=== PATIENT | male | born 1970 | race Caucasian/White ===

== ENCOUNTER 2016-06-16 09:46 | Emergency (ER) | payer MEDICARE, MEDICAID ==
[~2016-06-16] VITALS: Ht 172.7 cm; Wt 62.0 kg
[~2016-06-16 09:46] MED LIST: BENZ100C PO; LEVO500T8 PO; LEVO750T26 PO; LEVO750T6 PO; POLY17PO5 PO
[2016-06-16 09:59] VITALS: BP 128/75
[2016-06-16] MEDS ORDERED: FLUORESCEIN OPHTHALMIC 1 MG STRIP ONE (10:32)
[2016-06-16] MEDS ORDERED: PROPARACAINE OPHTH 0.5%, 15ML ONE (10:32)
[2016-06-16] MEDS ORDERED: PROPARACAINE OPHTH 0.5%, 15ML EACHEYE ONE (11:00)
[2016-06-16] MEDS ORDERED: FLUORESCEIN OPHTHALMIC 1 MG STRIP EACHEYE ONE (11:00)
== END 2016-06-16 11:54 | disposition home or self-care (01) ==
LOC: ED 11:48
DX: H10.022 Other mucopurulent conjunctivitis, left eye (principal); S05.02XA Injury of conjunctiva and corneal abrasion without foreign body, left eye, initial encounter; F41.1 Generalized anxiety disorder; G89.29 Other chronic pain; Z88.0 Allergy status to penicillin; Z87.891 Personal history of nicotine dependence; Z91.013 Allergy to seafood; X58.XXXA Exposure to other specified factors, initial encounter; Y93.89 Activity, other specified; Y99.8 Other external cause status; Y92.89 Other specified places as the place of occurrence of the external cause
CPT/HCPCS: 99283

== ENCOUNTER 2016-06-18 13:59 | Inpatient (IN) | payer MEDICARE, MEDICAID ==
[~2016-06-18] VITALS: Ht 172.7 cm; Wt 59.0 kg
[2016-06-18] MEDS ORDERED: PROPARACAINE OPHTH 0.5%, 15ML ONE (14:41)
[2016-06-18] MEDS ORDERED: FLUORESCEIN OPHTHALMIC 1 MG STRIP ONE (14:41)
[2016-06-18] MEDS ORDERED: SODIUM CHLORIDE FLUSH 10ML SYR IVF ONE (17:30)
[2016-06-18 17:33] LABS: HEMOGLOBIN 14.4 g/dL (13.7-18.0)
[2016-06-18 17:41] LABS: BLOOD UREA NITROGEN 10 mg/dL (7-18)
[2016-06-18] MEDS ORDERED: HYDROcodone/APAP 5/325 TABLET ONE (17:45)
[2016-06-18] MEDS ORDERED: HYDROcodone/APAP 5/325 TABLET PO ONE (18:00)
[2016-06-18] MEDS ORDERED: SODIUM CHLORIDE FLUSH 10ML SYR IVF PRN (18:30)
[2016-06-18] MEDS ORDERED: DIPH25CA61 PO (18:58)
[2016-06-18] MEDS ORDERED: ONDANSETRON ODT 4 MG PO PRN (19:00)
[2016-06-18] MEDS ORDERED: BISACODYL 10 MG SUPP PR PRN (19:00)
[2016-06-18] MEDS: ENOXAPARIN 40 MG/0.4 ML SQ SCH (19:00)
[2016-06-18] MEDS ORDERED: LABETALOL 5MG/ML, 20ML IV PRN (19:00)
[2016-06-18] MEDS ORDERED: POLYETHYLENE GLYCOL 17 GM PACKET PO PRN (19:00)
[2016-06-18] MEDS ORDERED: ACETAMINOPHEN 325 MG TABLET PO PRN (19:00)
[2016-06-18] MEDS ORDERED: DOCUSATE 100 MG CAPSULE PO PRN (19:00)
[2016-06-18 19:15] VITALS: BP 104/66
[2016-06-18] MEDS ORDERED: TOBRAMYCIN OPHTH 5ML OP SCH (19:30)
[2016-06-18] MEDS ORDERED: VANCOMYCIN PER PHARMACY MC SCH (19:30)
[2016-06-18] MEDS: SODIUM CHLORIDE 0.9% 1,000 ML IV SCH (20:14)
[2016-06-18] MEDS: [UNRECOGNIZED DRUG - OTHER] LEFTEYE SCH ×4 (20:14→23:15)
[2016-06-18] MEDS: ATROPINE OPHTH SOLN 1%, 2ML LEFTEYE SCH (21:17)
[2016-06-18] MEDS: TRAZODONE 50MG TABLET PO PRN (21:38)
[2016-06-19] MEDS: [UNRECOGNIZED DRUG - OTHER] LEFTEYE SCH ×26 (00:05→23:50)
[2016-06-19] MEDS: SODIUM CHLORIDE 0.9% 1,000 ML IV SCH ×2 (00:06→08:18)
[2016-06-19 04:30] LABS: HEMOGLOBIN 12.8 g/dL (13.7-18.0)
[2016-06-19 04:41] LABS: BLOOD UREA NITROGEN 9 mg/dL (7-18)
[2016-06-19 04:53] LABS: ASPARTATE AMINO TRANSFERASE 11 U/L (15-37)
[2016-06-19] MEDS: ATROPINE OPHTH SOLN 1%, 2ML LEFTEYE SCH ×2 (08:24→20:10)
[2016-06-19] MEDS ORDERED: INSULIN REGULAR 100 UNITS/ML, 3ML VIAL ONE ×8 (08:58→15:57)
[2016-06-19] MEDS ORDERED: TOBRAMYCIN LEFTEYE SCH (09:00)
[2016-06-19 10:15] LABS: DAU SCREEN DISCLAIMER
[2016-06-19] MEDS: TOBRAMYCIN LEFTEYE SCH ×14 (11:27→23:50)
[2016-06-19] MEDS ORDERED: INSULIN DETEMIR 100 UNITS/ML, PEN ONE ×2 (17:00→17:53)
[2016-06-19] MEDS: ENOXAPARIN 40 MG/0.4 ML SQ SCH (19:12)
[2016-06-19] MEDS: TRAZODONE 50MG TABLET PO PRN (20:10)
[2016-06-20] MEDS: TOBRAMYCIN LEFTEYE SCH ×12 (00:58→12:01)
[2016-06-20] MEDS: [UNRECOGNIZED DRUG - OTHER] LEFTEYE SCH ×13 (00:58→12:51)
[2016-06-20] MEDS ORDERED: INSULIN REGULAR 100 UNITS/ML, 3ML VIAL ONE ×2 (06:06→11:59)
[2016-06-20] MEDS: ATROPINE OPHTH SOLN 1%, 2ML LEFTEYE SCH ×2 (07:19→20:56)
[2016-06-20] MEDS: [UNRECOGNIZED DRUG - OTHER] LEFTEYE SCH ×5 (15:00→22:55)
[2016-06-20] MEDS: ENOXAPARIN 40 MG/0.4 ML SQ SCH (19:36)
[2016-06-21] MEDS: [UNRECOGNIZED DRUG - OTHER] LEFTEYE SCH ×12 (00:53→23:06)
[2016-06-21] MEDS ORDERED: INSULIN ASPART 100 UNITS/ML, PEN ONE (04:55)
[2016-06-21 08:00] VITALS: BP 126/75
[2016-06-21] MEDS: ATROPINE OPHTH SOLN 1%, 2ML LEFTEYE SCH ×2 (09:07→21:08)
[2016-06-21 12:06] VITALS: BP 119/86
[2016-06-21] MEDS: TOBRAMYCIN LEFTEYE SCH ×5 (15:04→23:16)
[2016-06-21 17:52] VITALS: BP 132/82
[2016-06-21 19:18] VITALS: BP 120/72
[2016-06-21] MEDS: ENOXAPARIN 40 MG/0.4 ML SQ SCH (19:24)
[2016-06-22] MEDS: [UNRECOGNIZED DRUG - OTHER] LEFTEYE SCH (01:00)
[2016-06-22] MEDS: [UNRECOGNIZED DRUG - OTHER] LEFTEYE SCH ×5 (01:12→16:49)
[2016-06-22 03:18] VITALS: BP 118/77
[2016-06-22 08:33] VITALS: BP 110/75
[2016-06-22] MEDS: ATROPINE OPHTH SOLN 1%, 2ML LEFTEYE SCH (09:51)
[2016-06-22] MEDS ORDERED: INSULIN ASPART 100 UNITS/ML, PEN ONE (13:21)
[2016-06-22 14:07] VITALS: BP 123/77
[2016-06-22] MEDS ORDERED: MOXI3DRO2 LEFTEYE (16:53)
[2016-06-22] MEDS ORDERED: MOXIFLOXACIN OPHTH O.5%, 3ML LEFTEYE SCH (17:00)
== END 2016-06-23 06:31 | disposition home or self-care (01) | DRG 121 ==
LOC: ED 15:22 → EDIP 18:15 → CCU 19:36 → ICU 06-21 17:20
PROVIDERS: ADMIT Internal Medicine; ATTEND Internal Medicine
PROC: HZ34ZZZ Individual Counseling for Substance Abuse Treatment, Interpersonal (ICD-10-PCS; principal; 2016-06-19)
DX: H16.012 Central corneal ulcer, left eye (principal); E43 Unspecified severe protein-calorie malnutrition; E87.2 Acidosis; E87.1 Hypo-osmolality and hyponatremia; Z68.1 Body mass index [BMI] 19.9 or less, adult; F19.20 Other psychoactive substance dependence, uncomplicated; E88.09 Other disorders of plasma-protein metabolism, not elsewhere classified; F41.1 Generalized anxiety disorder; H21.542 Posterior synechiae (iris), left eye; F41.9 Anxiety disorder, unspecified; G43.909 Migraine, unspecified, not intractable, without status migrainosus; F14.90 Cocaine use, unspecified, uncomplicated; F12.90 Cannabis use, unspecified, uncomplicated; Z88.0 Allergy status to penicillin; Z59.0 Homelessness; Z91.013 Allergy to seafood; Z71.51 Drug abuse counseling and surveillance of drug abuser; F17.210 Nicotine dependence, cigarettes, uncomplicated
CPT/HCPCS: 36415; 80048; 80053; 80307; 81003; 82040; 83605; 83735; 84439; 84443; 85025; 87070; 87081; 87205; 99283; 99285; J1650; J7030

== ENCOUNTER 2016-07-13 07:55 | Emergency (ER) | payer MEDICARE, MEDICAID ==
[~2016-07-13] VITALS: Ht 172.7 cm; Wt 58.2 kg
[~2016-07-13 07:55] MED LIST changes: +DIPH25CA61 PO; +MOXI3DRO2 LEFTEYE
[2016-07-13 07:58] VITALS: BP 118/82
== END 2016-07-13 08:51 | disposition home or self-care (01) ==
LOC: ED 08:45
DX: F15.151 Other stimulant abuse with stimulant-induced psychotic disorder with hallucinations (principal); L29.9 Pruritus, unspecified
CPT/HCPCS: 99283; Q0177

== ENCOUNTER 2016-07-27 19:22 | Emergency (ER) | payer MEDICARE, MEDICAID ==
[~2016-07-27] VITALS: Ht 172.7 cm; Wt 59.2 kg
[2016-07-27 19:30] VITALS: BP 126/87
[2016-07-27] MEDS ORDERED: IBUPROFEN 200 MG TABLET ONE (20:56)
[2016-07-27] MEDS ORDERED: IBUPROFEN 200 MG TABLET PO ONE (21:00)
== END 2016-07-27 21:27 | disposition home or self-care (01) ==
LOC: ED 21:00
DX: S00.93XA Contusion of unspecified part of head, initial encounter (principal); E87.6 Hypokalemia; Y04.8XXA Assault by other bodily force, initial encounter; Y93.89 Activity, other specified; Y92.410 Unspecified street and highway as the place of occurrence of the external cause; Y99.9 Unspecified external cause status
CPT/HCPCS: 99283

== ENCOUNTER 2016-08-03 06:39 | Emergency (ER) | payer MEDICARE, MEDICAID ==
[~2016-08-03] VITALS: Ht 172.7 cm; Wt 63.0 kg
[2016-08-03] MEDS ORDERED: SODIUM CHLORIDE FLUSH 10ML SYR IVF ONE (08:00)
[2016-08-03] MEDS ORDERED: SODIUM CHLORIDE 0.9% 1,000ML IVBOLUS ONE (08:00)
[2016-08-03 08:02] LABS: BLOOD UREA NITROGEN 16 mg/dL (7-18)
[2016-08-03 08:32] VITALS: BP 104/68
== END 2016-08-03 08:57 | disposition home or self-care (01) ==
LOC: ED 08:08
DX: R53.83 Other fatigue (principal); R53.1 Weakness; F17.200 Nicotine dependence, unspecified, uncomplicated
CPT/HCPCS: 36415; 80048; 82040; 83605; 85025; 96360; 99284; J7030

== ENCOUNTER 2016-08-04 16:51 | Emergency (ER) | payer MEDICARE, MEDICAID ==
[~2016-08-04] VITALS: Ht 172.7 cm; Wt 65.0 kg
[2016-08-04 17:03] VITALS: BP 160/92
[2016-08-04] MEDS ORDERED: PROPARACAINE OPHTH 0.5%, 15ML EACHEYE ONE (18:00)
[2016-08-04] MEDS ORDERED: FLUORESCEIN OPHTHALMIC 1 MG STRIP EACHEYE ONE (18:00)
== END 2016-08-04 17:33 | disposition left against medical advice (07) ==
LOC: ED 17:27
DX: H53.9 Unspecified visual disturbance (principal)
CPT/HCPCS: 99281

== ENCOUNTER 2016-08-05 14:45 | Emergency (ER) | payer MEDICARE, MEDICAID ==
[~2016-08-05] VITALS: Ht 172.7 cm; Wt 64.0 kg
[2016-08-05 14:50] VITALS: BP 124/78
[2016-08-05] MEDS ORDERED: PROPARACAINE OPHTH 0.5%, 15ML EACHEYE ONE (15:00)
[2016-08-05] MEDS ORDERED: FLUORESCEIN OPHTHALMIC 1 MG STRIP EACHEYE ONE (15:00)
[2016-08-05] MEDS ORDERED: FLUORESCEIN OPHTHALMIC 1 MG STRIP ONE (15:23)
[2016-08-05] MEDS ORDERED: PROPARACAINE OPHTH 0.5%, 15ML ONE (15:23)
== END 2016-08-05 16:52 | disposition home or self-care (01) ==
LOC: ED 16:46
DX: H53.123 Transient visual loss, bilateral (principal); H17.9 Unspecified corneal scar and opacity; R51 Headache; G89.29 Other chronic pain
CPT/HCPCS: 99283

== ENCOUNTER 2016-08-17 18:09 | Emergency (ER) | payer MEDICARE, MEDICAID ==
[~2016-08-17] VITALS: Ht 172.7 cm; Wt 60.7 kg
[2016-08-17] MEDS ORDERED: SODIUM CHLORIDE 0.9% 1,000ML IVBOLUS ONE (18:30)
[2016-08-17] MEDS ORDERED: ONDANSETRON 2MG/ML, 2ML IVPush ONE (18:30)
[2016-08-17] MEDS ORDERED: SODIUM CHLORIDE FLUSH 10ML SYR IVF ONE (18:30)
[2016-08-17] MEDS ORDERED: FAMOTIDINE 20 MG/2 ML IVP ONE (18:30)
[2016-08-17] MEDS ORDERED: ONDANSETRON ODT 4 MG ONE (19:14)
[2016-08-17] MEDS ORDERED: FAMOTIDINE 20 MG TABLET ONE (19:14)
[2016-08-17] MEDS ORDERED: FAMOTIDINE 20 MG TABLET PO ONE (19:30)
[2016-08-17] MEDS ORDERED: ONDANSETRON ODT 4 MG PO ONE (19:30)
[2016-08-17 19:50] VITALS: BP 114/83
== END 2016-08-17 22:02 | disposition home or self-care (01) ==
LOC: ED 21:56
DX: K29.00 Acute gastritis without bleeding (principal)
CPT/HCPCS: 81003; 99284; Q0162

== ENCOUNTER 2016-08-27 11:24 | Emergency (ER) | payer MEDICARE, MEDICAID ==
[~2016-08-27] VITALS: Ht 172.7 cm; Wt 65.0 kg
[2016-08-27 11:28] VITALS: BP 140/100
[2016-08-27] MEDS ORDERED: DIPHENHYDRAMINE 50 MG/ML, 1ML IVPush ONE (12:30)
[2016-08-27] MEDS ORDERED: KETOROLAC 30 MG/1 ML IVPush ONE (12:30)
[2016-08-27] MEDS ORDERED: SODIUM CHLORIDE 0.9% 1,000ML IVBOLUS ONE (12:30)
[2016-08-27] MEDS ORDERED: PROCHLORPERAZINE 5 MG/ML, 2ML IVPush ONE (12:30)
[2016-08-27] MEDS ORDERED: SODIUM CHLORIDE FLUSH 10ML SYR IVF ONE (12:30)
[2016-08-27] MEDS ORDERED: DIPHENHYDRAMINE 50 MG/ML, 1ML ONE (12:52)
[2016-08-27] MEDS ORDERED: KETOROLAC 30 MG/1 ML ONE (12:52)
[2016-08-27] MEDS ORDERED: PROCHLORPERAZINE 5 MG/ML, 2ML ONE (12:52)
== END 2016-08-27 13:56 | disposition home or self-care (01) ==
LOC: ED 13:50
DX: G43.C0 Periodic headache syndromes in child or adult, not intractable (principal); Z87.01 Personal history of pneumonia (recurrent); Z88.0 Allergy status to penicillin
CPT/HCPCS: 96361; 96374; 96375; 99284; J0780; J1200; J1885; J7030

== ENCOUNTER 2016-09-27 18:37 | Emergency (ER) | payer MEDICARE, MEDICAID ==
[~2016-09-27] VITALS: Ht 172.7 cm; Wt 61.3 kg
[2016-09-27] MEDS ORDERED: KETOROLAC 30 MG/1 ML ONE (19:12)
[2016-09-27] MEDS ORDERED: DIPHENHYDRAMINE 50 MG/ML, 1ML ONE (19:12)
[2016-09-27] MEDS ORDERED: METOCLOPRAMIDE 5 MG/ML, 2ML ONE (19:12)
[2016-09-27] MEDS ORDERED: ONDANSETRON 2MG/ML, 2ML ONE (19:12)
[2016-09-27] MEDS ORDERED: SODIUM CHLORIDE 0.9% 1,000ML IVBOLUS ONE (19:30)
[2016-09-27] MEDS ORDERED: METOCLOPRAMIDE 5 MG/ML, 2ML IVPush ONE (19:30)
[2016-09-27] MEDS ORDERED: ONDANSETRON 2MG/ML, 2ML IVPush ONE (19:30)
[2016-09-27] MEDS ORDERED: SODIUM CHLORIDE FLUSH 10ML SYR IVF ONE (19:30)
[2016-09-27] MEDS ORDERED: DIPHENHYDRAMINE 50 MG/ML, 1ML IVPush ONE (19:30)
[2016-09-27] MEDS ORDERED: KETOROLAC 30 MG/1 ML IVPush ONE (19:30)
[2016-09-27 20:30] VITALS: BP 111/69
== END 2016-09-27 20:41 | disposition home or self-care (01) ==
LOC: ED 20:32
DX: G43.C0 Periodic headache syndromes in child or adult, not intractable (principal); F17.200 Nicotine dependence, unspecified, uncomplicated; F41.9 Anxiety disorder, unspecified; F19.10 Other psychoactive substance abuse, uncomplicated; Z88.0 Allergy status to penicillin
CPT/HCPCS: 96361; 96374; 96375; 99284; J1200; J1885; J2405; J2765; J7030

== ENCOUNTER 2016-11-27 06:16 | Emergency (ER) | payer MEDICARE, MEDICAID ==
[~2016-11-27] VITALS: Ht 172.7 cm; Wt 65.0 kg
[2016-11-27] MEDS ORDERED: DEXTROSE 50%, 50ML SYRINGE IVPush ONE (07:00)
[2016-11-27] MEDS ORDERED: ONDANSETRON 2MG/ML, 2ML IVPush ONE (07:00)
[2016-11-27] MEDS ORDERED: FAMOTIDINE 20 MG/2 ML IVP ONE (07:00)
[2016-11-27] MEDS ORDERED: SODIUM CHLORIDE 0.9% 1,000ML IVBOLUS ONE (07:00)
[2016-11-27] MEDS ORDERED: MORPHINE SULFATE 4 MG/ML, 1ML IVPush PRN (07:00)
[2016-11-27] MEDS ORDERED: MAALOX/HYOSCYAMINE/LIDOCAINE 45 ML BTL PO ONE (07:00)
[2016-11-27] MEDS ORDERED: MORPHINE SULFATE 4 MG/ML, 1ML ONE (07:13)
[2016-11-27] MEDS ORDERED: MAALOX/HYOSCYAMINE/LIDOCAINE 45 ML BTL ONE (07:14)
[2016-11-27] MEDS ORDERED: FAMOTIDINE 20 MG/2 ML ONE (07:14)
[2016-11-27] MEDS ORDERED: ONDANSETRON 2MG/ML, 2ML ONE (07:14)
[2016-11-27 07:27] LABS: HEMOGLOBIN 14.1 g/dL (13.7-18.0); WHITE BLOOD COUNT 8.4 x10^3/uL (3.4-10)
[2016-11-27 07:37] LABS: ASPARTATE AMINO TRANSFERASE 17 U/L (15-37); BLOOD UREA NITROGEN 9 mg/dL (7-18)
[2016-11-27 09:43] VITALS: BP 117/90
== END 2016-11-27 09:46 | disposition home or self-care (01) ==
LOC: ED 07:53
DX: R10.33 Periumbilical pain (principal); R11.0 Nausea
CPT/HCPCS: 36415; 80053; 81003; 82962; 83690; 85025; 96361; 96374; 96375; 99284; J2405; J7030; S0028

== ENCOUNTER 2016-12-02 04:53 | Emergency (ER) | payer MEDICARE, MEDICAID ==
[~2016-12-02] VITALS: Ht 172.7 cm; Wt 61.8 kg
[2016-12-02] MEDS ORDERED: ONDANSETRON ODT 4 MG ONE (05:17)
[2016-12-02] MEDS ORDERED: ACETAMINOPHEN 325 MG TABLET ONE (05:18)
[2016-12-02] MEDS ORDERED: ACETAMINOPHEN 325 MG TABLET PO ONE (05:30)
[2016-12-02] MEDS ORDERED: ONDANSETRON ODT 4 MG PO ONE (05:30)
[2016-12-02 06:38] VITALS: BP 132/82
== END 2016-12-02 07:58 | disposition home or self-care (01) ==
LOC: ED 07:13
DX: R11.0 Nausea (principal)
CPT/HCPCS: 93005; 99283; Q0162

== ENCOUNTER 2017-01-21 15:11 | Emergency (ER) | payer MEDICARE, MEDICAID ==
[~2017-01-21] VITALS: Ht 172.7 cm; Wt 65.5 kg
[2017-01-21 16:42] LABS: HEMATOCRIT 39.9 % (39.2-51.8); HEMOGLOBIN 13.6 g/dL (13.7-18.0); WHITE BLOOD COUNT 8.4 x10^3/uL (3.4-10)
[2017-01-21 16:49] LABS: ASPARTATE AMINO TRANSFERASE 27 U/L (15-37); BLOOD UREA NITROGEN 10 mg/dL (7-18)
[2017-01-21] MEDS ORDERED: FAMOTIDINE 20 MG TABLET ONE (17:24)
[2017-01-21] MEDS ORDERED: ONDANSETRON ODT 4 MG ONE (17:24)
[2017-01-21] MEDS ORDERED: FAMOTIDINE 20 MG TABLET PO ONE (17:30)
[2017-01-21] MEDS ORDERED: ONDANSETRON ODT 4 MG PO ONE (17:30)
[2017-01-21 18:27] VITALS: BP 131/74
== END 2017-01-21 18:28 | disposition home or self-care (01) ==
LOC: ED 17:21
DX: R10.13 Epigastric pain (principal); I10 Essential (primary) hypertension; K08.89 Other specified disorders of teeth and supporting structures; Z88.0 Allergy status to penicillin
CPT/HCPCS: 36415; 80053; 83690; 85025; 93005; 99285; Q0162

== ENCOUNTER 2017-03-03 05:32 | Emergency (ER) | payer MEDICARE, MEDICAID ==
[~2017-03-03] VITALS: Ht 172.7 cm; Wt 60.0 kg
[2017-03-03 10:28] VITALS: BP 103/73
== END 2017-03-03 10:30 | disposition home or self-care (01) ==
LOC: ED 08:39
DX: J20.8 Acute bronchitis due to other specified organisms (principal); B96.89 Other specified bacterial agents as the cause of diseases classified elsewhere; F17.210 Nicotine dependence, cigarettes, uncomplicated; Z59.0 Homelessness
CPT/HCPCS: 71020; 93005; 99284

== ENCOUNTER 2017-03-09 21:18 | Emergency (ER) | payer MEDICARE, MEDICAID ==
[~2017-03-09] VITALS: Ht 172.7 cm; Wt 64.0 kg
[2017-03-09 23:08] VITALS: BP 102/61
== END 2017-03-09 23:11 | disposition home or self-care (01) ==
LOC: ED 23:01
DX: F15.129 Other stimulant abuse with intoxication, unspecified (principal); M54.12 Radiculopathy, cervical region; I10 Essential (primary) hypertension
CPT/HCPCS: 93005; 99283

== ENCOUNTER 2017-04-26 13:16 | Emergency (ER) | payer MEDICARE, MEDICAID ==
[~2017-04-26] VITALS: Ht 172.7 cm; Wt 63.6 kg
[2017-04-26] MEDS ORDERED: KETOROLAC 30 MG/1 ML IVPush ONE (18:00)
[2017-04-26] MEDS ORDERED: SODIUM CHLORIDE FLUSH 10ML SYR IVF ONE (18:00)
[2017-04-26] MEDS ORDERED: DIPHENHYDRAMINE 50 MG/ML, 1ML IVPush ONE (18:00)
[2017-04-26] MEDS ORDERED: SODIUM CHLORIDE 0.9% 1,000ML IVBOLUS ONE (18:00)
[2017-04-26] MEDS ORDERED: METOCLOPRAMIDE 5 MG/ML, 2ML IVPush ONE (18:00)
[2017-04-26] MEDS ORDERED: KETOROLAC 30 MG/1 ML ONE (18:08)
[2017-04-26] MEDS ORDERED: DIPHENHYDRAMINE 50 MG/ML, 1ML ONE (18:08)
[2017-04-26] MEDS ORDERED: METOCLOPRAMIDE 5 MG/ML, 2ML ONE (18:09)
[2017-04-26 20:17] VITALS: BP 120/76
== END 2017-04-26 20:19 | disposition home or self-care (01) ==
LOC: ED 18:09
DX: R51 Headache (principal); I10 Essential (primary) hypertension
CPT/HCPCS: 96361; 96374; 96375; 99284; J1200; J1885; J2765; J7030

== ENCOUNTER 2017-06-22 01:40 | Emergency (ER) | payer MEDICAID, MEDICARE ==
[~2017-06-22] VITALS: Ht 172.7 cm; Wt 64.0 kg
[2017-06-22 01:41] VITALS: BP 123/76
[2017-06-22] MEDS ORDERED: ACETAMINOPHEN 325 MG TABLET PO ONE (02:00)
[2017-06-22] MEDS ORDERED: ONDANSETRON ODT 8 MG PO ONE (02:00)
[2017-06-22] MEDS ORDERED: ACETAMINOPHEN 325 MG TABLET ONE (02:36)
[2017-06-22] MEDS ORDERED: ONDANSETRON ODT 8 MG ONE (02:36)
== END 2017-06-22 03:15 | disposition home or self-care (01) ==
LOC: ED 01:57
DX: F10.20 Alcohol dependence, uncomplicated (principal); F19.20 Other psychoactive substance dependence, uncomplicated; I10 Essential (primary) hypertension; G43.909 Migraine, unspecified, not intractable, without status migrainosus; Z72.9 Problem related to lifestyle, unspecified; Z59.0 Homelessness
CPT/HCPCS: 99283; Q0162

== ENCOUNTER 2017-07-07 00:21 | Emergency (ER) | payer MEDICARE ==
[~2017-07-07] VITALS: Ht 172.7 cm; Wt 61.3 kg
[2017-07-07] MEDS ORDERED: ONDANSETRON ODT 4 MG PO ONE (01:00)
[2017-07-07] MEDS ORDERED: KETOROLAC 30 MG/1 ML IM ONE (01:00)
[2017-07-07] MEDS ORDERED: DIPHENHYDRAMINE 25 MG CAPSULE PO ONE (01:00)
[2017-07-07] MEDS ORDERED: ONDANSETRON ODT 4 MG ONE (01:09)
[2017-07-07] MEDS ORDERED: DIPHENHYDRAMINE 25 MG CAPSULE ONE (01:09)
[2017-07-07] MEDS ORDERED: KETOROLAC 30 MG/1 ML ONE (01:09)
[2017-07-07 02:38] VITALS: BP 118/86
== END 2017-07-07 02:40 | disposition home or self-care (01) ==
LOC: ED 00:39
DX: G43.909 Migraine, unspecified, not intractable, without status migrainosus (principal); I10 Essential (primary) hypertension; M54.12 Radiculopathy, cervical region; F17.210 Nicotine dependence, cigarettes, uncomplicated
CPT/HCPCS: 96372; 99283; J1885; Q0162; Q0163

== ENCOUNTER 2017-07-10 20:44 | Emergency (ER) | payer MEDICARE ==
[~2017-07-10] VITALS: Ht 172.7 cm; Wt 60.0 kg
[2017-07-10 20:47] VITALS: BP 129/81
== END 2017-07-10 21:40 | disposition home or self-care (01) ==
LOC: ED 21:32
DX: L25.9 Unspecified contact dermatitis, unspecified cause (principal); G43.909 Migraine, unspecified, not intractable, without status migrainosus; E87.6 Hypokalemia
CPT/HCPCS: 99283

== ENCOUNTER 2017-07-31 12:32 | Observation (INO) | payer MEDICARE, MEDICAID ==
[~2017-07-31] VITALS: Ht 172.7 cm; Wt 61.0 kg
[2017-07-31] MEDS ORDERED: LORazepam 1MG TABLET ONE (13:14)
[2017-07-31] MEDS ORDERED: LORazepam 1MG TABLET PO ONE (13:30)
[2017-07-31 13:33] LABS: BASOPHILS # (AUTO) 0.04 x10^3/uL (0-0.1); BASOPHILS % (AUTO) 1 % (0-1); EOSINOPHILS # (AUTO) 0.05 x10^3/uL (0-0.4); EOSINOPHILS % (AUTO) 1 % (1-7); LYMPHOCYTES # (AUTO) 2.02 x10^3/uL (1-3.4); LYMPHOCYTES % (AUTO) 30 % (22-44); MD NO; MEAN CORPUSCULAR HEMOGLOBIN 30.8 pg (27.5-34.5); MEAN CORPUSCULAR HGB CONC 34.1 g/dL (33.2-36.2); MEAN CORPUSCULAR VOLUME 90.3 fL (81-97); MEAN PLATELET VOLUME 7.7 fL (7.4-10.4); MONOCYTES # (AUTO) 0.58 x10^3/uL (0.2-0.8); MONOCYTES % (AUTO) 9 % (2-9); NEUTROPHILS # (AUTO) 4.11 x10^3/uL (1.8-6.8); NEUTROPHILS % (AUTO) 60 % (42-75); PLATELET COUNT 314 x10^3/uL (130-400); RED BLOOD COUNT 4.97 x10^6/uL (4.38-5.82); RED CELL DISTRIBUTION WIDTH 13.5 % (9.4-14.8)
[2017-07-31 13:40] LABS: ALBUMIN 4.1 g/dL (3.4-5.0); ANION GAP 8 mmol/L (5-15); CALCIUM 8.9 mg/dL (8.5-10.1); CHLORIDE 106 mmol/L (98-107)
[2017-07-31 13:42] LABS: ACETAMINOPHEN < 2 mcg/mL (10-30); SALICYLATE LEVEL < 1.7 mg/dL (2.8-20.0)
[2017-07-31 17:06] LABS: AMPHETAMINE SCREEN, URINE Positive (Negative); BARBITURATE SCREEN, URINE Negative (Negative); BENZODIAZEPINE SCREEN, URINE Negative (Negative); CANNABINOID SCREEN, URINE Positive (Negative); COCAINE SCREEN, URINE Negative (Negative); METHADONE SCREEN, URINE Negative (Negative); OPIATE SCREEN, URINE Negative (Negative)
[2017-07-31] MEDS ORDERED: POTASSIUM CHLORIDE 20 MEQ TAB.ER.PRT PO ONE (19:00)
[2017-07-31] MEDS ORDERED: LORazepam 1MG TABLET PO PRN (19:00)
[2017-07-31] MEDS ORDERED: ONDANSETRON ODT 4 MG PO PRN (19:00)
[2017-07-31] MEDS: NICOTINE 21 MG/24 HR PATCH.TD24 TD SCH (19:00)
[2017-07-31] MEDS ORDERED: ACETAMINOPHEN 325 MG TABLET PO PRN (19:00)
[2017-07-31] MEDS: OLANZAPINE 5 MG TABLET PO SCH (21:00)
[2017-08-01] MEDS: NICOTINE 21 MG/24 HR PATCH.TD24 TD SCH (07:00)
[2017-08-01] MEDS ORDERED: NICOTINE 21 MG/24 HR PATCH.TD24 ONE (07:06)
[2017-08-01] MEDS ORDERED: POTASSIUM CHLORIDE 20 MEQ TAB.ER.PRT ONE (07:06)
[2017-08-01 13:20] VITALS: BP 110/75
[2017-08-01 19:42] VITALS: BP 104/69
[2017-08-01] MEDS: OLANZAPINE 5 MG TABLET PO SCH (21:12)
[2017-08-02 07:30] VITALS: BP 106/69
[2017-08-02] MEDS: NICOTINE 21 MG/24 HR PATCH.TD24 TD SCH (08:28)
== END 2017-08-02 14:29 ==
LOC: ED 13:11 → EDIP 18:23 → 3E 08-01 13:15
PROVIDERS: ADMIT Hospitalist; ATTEND Hospitalist
DX: F23 Brief psychotic disorder (principal); E87.6 Hypokalemia; M54.12 Radiculopathy, cervical region; G43.909 Migraine, unspecified, not intractable, without status migrainosus; F41.9 Anxiety disorder, unspecified; I10 Essential (primary) hypertension; F17.210 Nicotine dependence, cigarettes, uncomplicated; Z87.01 Personal history of pneumonia (recurrent)
CPT/HCPCS: 36415; 80048; 80307; 80329; 82040; 85025; 99285; G0378; G0480

== ENCOUNTER 2017-08-31 17:55 | Inpatient (IN) | payer MEDICARE, MEDICAID ==
[~2017-08-31] VITALS: Ht 172.7 cm; Wt 66.0 kg
[2017-08-31] MEDS ORDERED: OXYcodone/APAP 5/325MG TABLET ONE (20:15)
[2017-08-31] MEDS ORDERED: OXYcodone/APAP 5/325MG TABLET PO ONE (20:30)
[2017-08-31] MEDS ORDERED: SODIUM CHLORIDE FLUSH 10ML SYR IVF ONE (21:30)
[2017-08-31] MEDS ORDERED: CEFAZOLIN PMX 1GM/50ML 50 ML IVPB ONE (21:30)
[2017-08-31] MEDS ORDERED: CEFAZOLIN PMX 1GM/50ML 50 ML ONE (21:37)
[2017-08-31 21:47] LABS: ALBUMIN 3.9 g/dL (3.4-5.0); ANION GAP 6 mmol/L (5-15); CALCIUM 8.7 mg/dL (8.5-10.1); CHLORIDE 106 mmol/L (98-107); CREATININE 0.68 mg/dL (0.7-1.3)
[2017-08-31 21:57] LABS: BASOPHILS # (AUTO) 0.03 x10^3/uL (0-0.1); BASOPHILS % (AUTO) 0 % (0-1); EOSINOPHILS # (AUTO) 0.05 x10^3/uL (0-0.4); EOSINOPHILS % (AUTO) 1 % (1-7); LYMPHOCYTES # (AUTO) 1.53 x10^3/uL (1-3.4); LYMPHOCYTES % (AUTO) 16 % (22-44); MD NO; MEAN CORPUSCULAR HEMOGLOBIN 30.7 pg (27.5-34.5); MEAN CORPUSCULAR HGB CONC 33.7 g/dL (33.2-36.2); MEAN PLATELET VOLUME 8.3 fL (7.4-10.4); MONOCYTES # (AUTO) 0.36 x10^3/uL (0.2-0.8); MONOCYTES % (AUTO) 4 % (2-9); NEUTROPHILS # (AUTO) 7.56 x10^3/uL (1.8-6.8); NEUTROPHILS % (AUTO) 79 % (42-75); PLATELET COUNT 296 x10^3/uL (130-400); RED BLOOD COUNT 4.98 x10^6/uL (4.38-5.82); RED CELL DISTRIBUTION WIDTH 13.6 % (9.4-14.8)
[2017-08-31 22:11] LABS: INTERNATIONAL NORMALIZED RATIO 0.97 (0.93-1.1)
[2017-08-31] MEDS: SODIUM CHLORIDE 0.9% 1,000 ML IV SCH (22:49)
[2017-08-31] MEDS ORDERED: ONDANSETRON 2MG/ML, 2ML IVPush PRN (23:00)
[2017-08-31] MEDS ORDERED: BISACODYL 10 MG SUPP PR PRN (23:00)
[2017-08-31] MEDS: morphine SULFATE 10 MG/ML, 1ML IVPush PRN (23:40)
[2017-09-01 05:45] LABS: BASOPHILS # (AUTO) 0.04 x10^3/uL (0-0.1); BASOPHILS % (AUTO) 1 % (0-1); EOSINOPHILS # (AUTO) 0.09 x10^3/uL (0-0.4); EOSINOPHILS % (AUTO) 1 % (1-7); LYMPHOCYTES # (AUTO) 2.73 x10^3/uL (1-3.4); LYMPHOCYTES % (AUTO) 35 % (22-44); MD NO; MEAN CORPUSCULAR HEMOGLOBIN 31.2 pg (27.5-34.5); MEAN CORPUSCULAR HGB CONC 34.1 g/dL (33.2-36.2); MEAN CORPUSCULAR VOLUME 91.6 fL (81-97); MEAN PLATELET VOLUME 8.1 fL (7.4-10.4); MONOCYTES # (AUTO) 0.44 x10^3/uL (0.2-0.8); MONOCYTES % (AUTO) 6 % (2-9); NEUTROPHILS # (AUTO) 4.48 x10^3/uL (1.8-6.8); NEUTROPHILS % (AUTO) 58 % (42-75); PLATELET COUNT 257 x10^3/uL (130-400); RED BLOOD COUNT 4.34 x10^6/uL (4.38-5.82); RED CELL DISTRIBUTION WIDTH 13.4 % (9.4-14.8)
[2017-09-01 05:56] LABS: ALANINE AMINOTRANSFERASE 23 U/L (12-78); ALBUMIN 3.1 g/dL (3.4-5.0); ANION GAP 4 mmol/L (5-15); CALCIUM 8.1 mg/dL (8.5-10.1); CHLORIDE 108 mmol/L (98-107)
[2017-09-01 05:59] LABS: ALKALINE PHOSPHATASE 85 U/L (45-117); BILIRUBIN,TOTAL 0.6 mg/dL (0.2-1.0); CREATININE 0.78 mg/dL (0.7-1.3)
[2017-09-01 09:20] VITALS: BP 114/75
[2017-09-01] MEDS: morphine SULFATE 10 MG/ML, 1ML IVPush PRN ×3 (10:27→20:53)
[2017-09-01] MEDS: SODIUM CHLORIDE 0.9% 1,000 ML IV SCH (11:51)
[2017-09-01 12:15] VITALS: BP 101/68
[2017-09-01] MEDS ORDERED: LIDOCAINE/PF 1%, 30ML ONE (14:03)
[2017-09-01] MEDS ORDERED: BALANCED SALT OPHTH IRRIG SOLN 18ML ONE (14:03)
[2017-09-01] MEDS ORDERED: OXYMETAZOLINE NASAL SPRAY 0.05%, 15ML ONE (14:03)
[2017-09-01] MEDS ORDERED: EPINEPHRINE 1 MG/ML, 1ML ONE (14:03)
[2017-09-01] MEDS ORDERED: FENTANYL PF 100 MCG/2ML ONE ×2 (16:06→17:47)
[2017-09-01] MEDS ORDERED: MIDAZOLAM 1 MG/ML, 2ML ONE (16:06)
[2017-09-01] MEDS ORDERED: ROCURONIUM 10 MG/ML,10ML ONE (16:10)
[2017-09-01] MEDS ORDERED: KETOROLAC 30 MG/1 ML ONE (16:10)
[2017-09-01] MEDS ORDERED: SUCCINYLCHOLINE 20 MG/ML, 10ML ONE (16:10)
[2017-09-01] MEDS ORDERED: PROPOFOL 10 MG/ML, 20ML ONE (16:10)
[2017-09-01] MEDS ORDERED: DEXAMETHASONE 4 MG/ML, 1ML ONE (16:10)
[2017-09-01] MEDS ORDERED: ONDANSETRON 2MG/ML, 2ML ONE (16:10)
[2017-09-01] MEDS ORDERED: CEFAZOLIN 1,000 MG ONE (16:10)
[2017-09-01] MEDS ORDERED: ALBUTEROL SULFATE 2.5 MG/3 ML NPPB PRN (17:00)
[2017-09-01] MEDS ORDERED: MIDAZOLAM 1 MG/ML, 2ML IV PRN (17:00)
[2017-09-01] MEDS ORDERED: HALOPERIDOL 5 MG/ML IV PRN (17:00)
[2017-09-01] MEDS ORDERED: HYDROmorphone 1 MG/ML, 1ML IV PRN (17:00)
[2017-09-01] MEDS ORDERED: OXYcodone 5 MG/5 ML ORAL.SOL UDC PO PRN (17:00)
[2017-09-01] MEDS ORDERED: ACETAMINOPHEN 325 MG TABLET PO PRN (17:00)
[2017-09-01] MEDS ORDERED: EPHEDRINE 50 MG/ML, 1ML IVPush PRN (17:00)
[2017-09-01] MEDS ORDERED: HYDROcodone/APAP 7.5-325MG/15ML UDC PO PRN (17:00)
[2017-09-01] MEDS ORDERED: hydrALAzine 20 MG/ML, 1ML IV PRN (17:00)
[2017-09-01] MEDS ORDERED: MEPERIDINE/PF 25MG/0.5ML IVPush PRN (17:00)
[2017-09-01] MEDS ORDERED: LABETALOL 5MG/ML, 20ML IV PRN (17:00)
[2017-09-01] MEDS ORDERED: PROMETHAZINE 25 MG/ML, 1ML IV PRN (17:00)
[2017-09-01] MEDS ORDERED: ALBUTEROL/IPRATROPIUM 2.5MG/0.5MG, 3 ML NPPB PRN (17:00)
[2017-09-01] MEDS ORDERED: ONDANSETRON ODT 8 MG PO PRN (17:00)
[2017-09-01] MEDS ORDERED: OXYcodone 5 MG/5 ML ORAL.SOL UDC ONE (17:47)
[2017-09-01] MEDS: FENTANYL PF 100 MCG/2ML IV PRN ×2 (17:52→18:01)
[2017-09-01 20:00] VITALS: BP 112/77
[2017-09-01] MEDS: CEFAZOLIN PMX 1GM/50ML 50 ML IV SCH (20:54)
[2017-09-01] MEDS: HYDROcodone/APAP 5/325 TABLET PO PRN (23:34)
[2017-09-02] VITALS: BP 112/74
[2017-09-02] MEDS: morphine SULFATE 10 MG/ML, 1ML IVPush PRN ×3 (00:15→10:04)
[2017-09-02 03:49] VITALS: BP 115/73
[2017-09-02 05:23] LABS: BASOPHILS # (AUTO) 0.03 x10^3/uL (0-0.1); BASOPHILS % (AUTO) 0 % (0-1); EOSINOPHILS % (AUTO) 0 % (1-7); LYMPHOCYTES # (AUTO) 1.24 x10^3/uL (1-3.4); LYMPHOCYTES % (AUTO) 12 % (22-44); MD NO; MEAN CORPUSCULAR HEMOGLOBIN 30.5 pg (27.5-34.5); MEAN CORPUSCULAR HGB CONC 33.5 g/dL (33.2-36.2); MONOCYTES # (AUTO) 0.49 x10^3/uL (0.2-0.8); MONOCYTES % (AUTO) 5 % (2-9); NEUTROPHILS # (AUTO) 8.42 x10^3/uL (1.8-6.8); NEUTROPHILS % (AUTO) 83 % (42-75); PLATELET COUNT 277 x10^3/uL (130-400); RED BLOOD COUNT 4.44 x10^6/uL (4.38-5.82); RED CELL DISTRIBUTION WIDTH 13.4 % (9.4-14.8)
[2017-09-02] MEDS: HYDROcodone/APAP 5/325 TABLET PO PRN ×2 (05:23→13:10)
[2017-09-02] MEDS: CEFAZOLIN PMX 1GM/50ML 50 ML IV SCH ×2 (05:23→13:04)
[2017-09-02 05:44] LABS: CHLORIDE 105 mmol/L (98-107)
[2017-09-02 05:52] LABS: ANION GAP 5 mmol/L (5-15); CALCIUM 8.3 mg/dL (8.5-10.1); CREATININE 0.81 mg/dL (0.7-1.3)
[2017-09-02 06:30] VITALS: BP 99/59
[2017-09-02] MEDS: SODIUM CHLORIDE 0.9% 1,000 ML IV SCH (13:04)
[2017-09-02] MEDS ORDERED: HYDR-882 PO (13:51)
[2017-09-02 15:13] VITALS: BP 110/74
== END 2017-09-02 15:45 | disposition home or self-care (01) | DRG 131 ==
LOC: ED 21:15 → EDIP 22:31 → 4NOR 22:50 → DCLOUNGE 09-02 15:40
PROVIDERS: ADMIT Internal Medicine; ATTEND Internal Medicine
PROC: 0NSV04Z Reposition Left Mandible with Internal Fixation Device, Open Approach (ICD-10-PCS; principal; 2017-08-31)
DX: S02.642A Fracture of ramus of left mandible, initial encounter for closed fracture (principal); R71.0 Precipitous drop in hematocrit; M54.12 Radiculopathy, cervical region; F15.10 Other stimulant abuse, uncomplicated; F17.210 Nicotine dependence, cigarettes, uncomplicated; F41.9 Anxiety disorder, unspecified; F64.9 Gender identity disorder, unspecified; F12.10 Cannabis abuse, uncomplicated; G43.909 Migraine, unspecified, not intractable, without status migrainosus; I10 Essential (primary) hypertension; J32.0 Chronic maxillary sinusitis; Z66 Do not resuscitate; Y04.0XXA Assault by unarmed brawl or fight, initial encounter; Z59.0 Homelessness; Z87.01 Personal history of pneumonia (recurrent); Y92.89 Other specified places as the place of occurrence of the external cause; Z88.0 Allergy status to penicillin; Z88.8 Allergy status to other drugs, medicaments and biological substances
CPT/HCPCS: 36415; 70486; 71045; 80048; 80053; 82040; 85025; 85610; 85730; 93005; 96365; C1713; J0171; J0690; J1100; J1885; J2250; J2405; J2704; J3010; J3490; J0330; J2270; J7030

== ENCOUNTER 2017-09-03 07:13 | Emergency (ER) | payer MEDICARE, MEDICAID ==
[~2017-09-03] VITALS: Ht 172.7 cm; Wt 61.6 kg
[~2017-09-03 07:13] MED LIST changes: +HYDR-882 PO
[2017-09-03 07:20] VITALS: BP 130/89
[2017-09-03] MEDS ORDERED: HYDROcodone/APAP 5/325 TABLET ONE (07:41)
[2017-09-03] MEDS ORDERED: HYDROcodone/APAP 5/325 TABLET PO ONE (08:00)
== END 2017-09-03 07:58 | disposition home or self-care (01) ==
LOC: ED 07:33
DX: R68.84 Jaw pain (principal); G43.909 Migraine, unspecified, not intractable, without status migrainosus; I10 Essential (primary) hypertension
CPT/HCPCS: 99282

== ENCOUNTER 2017-09-16 23:27 | Emergency (ER) | payer MEDICARE, MEDICAID ==
[~2017-09-16] VITALS: Ht 172.7 cm; Wt 60.0 kg
[2017-09-16 23:30] VITALS: BP 127/82
== END 2017-09-17 00:54 | disposition left against medical advice (07) ==
LOC: ED 23:52
DX: R68.84 Jaw pain (principal); G43.909 Migraine, unspecified, not intractable, without status migrainosus; I10 Essential (primary) hypertension
CPT/HCPCS: 99283

== ENCOUNTER 2017-12-16 00:01 | Emergency (ER) | payer MEDICARE, MEDICAID ==
[~2017-12-16] VITALS: Ht 172.7 cm; Wt 58.0 kg
[~2017-12-16 00:01] MED LIST changes: +HYDR-3653 PO; -HYDR-882 PO
[2017-12-16 00:06] VITALS: BP 122/83
[2017-12-16] MEDS ORDERED: CLINDAMYCIN 300 MG CAPSULE ONE (00:59)
[2017-12-16] MEDS ORDERED: LIDOCAINE-MPF 1%, 5ML ONE (00:59)
[2017-12-16] MEDS ORDERED: LIDOCAINE 1%, 10ML INFIL ONE (01:00)
[2017-12-16] MEDS ORDERED: CLINDAMYCIN 300 MG CAPSULE PO ONE (01:00)
== END 2017-12-16 01:41 | disposition home or self-care (01) ==
LOC: ED 01:30
DX: L03.011 Cellulitis of right finger (principal); F17.200 Nicotine dependence, unspecified, uncomplicated
CPT/HCPCS: 10060; 99283

== ENCOUNTER 2018-02-01 06:30 | Emergency (ER) | payer MEDICARE, MEDICAID ==
[~2018-02-01] VITALS: Ht 172.7 cm; Wt 60.0 kg
[2018-02-01] MEDS ORDERED: IBUPROFEN 200 MG TABLET ONE (06:46)
[2018-02-01] MEDS ORDERED: METHOCARBAMOL 750 MG TABLET ONE (06:46)
[2018-02-01] MEDS ORDERED: IBUPROFEN 200 MG TABLET PO ONE (07:00)
[2018-02-01] MEDS ORDERED: METHOCARBAMOL 750 MG TABLET PO ONE (07:00)
[2018-02-01 07:27] VITALS: BP 121/77
== END 2018-02-01 07:29 | disposition home or self-care (01) ==
LOC: ED 07:23
DX: G89.29 Other chronic pain (principal); M54.2 Cervicalgia; I10 Essential (primary) hypertension; F12.10 Cannabis abuse, uncomplicated; F15.10 Other stimulant abuse, uncomplicated; F41.1 Generalized anxiety disorder; G43.909 Migraine, unspecified, not intractable, without status migrainosus; F29 Unspecified psychosis not due to a substance or known physiological condition; Z87.19 Personal history of other diseases of the digestive system; Z72.9 Problem related to lifestyle, unspecified; Z87.2 Personal history of diseases of the skin and subcutaneous tissue; Z87.01 Personal history of pneumonia (recurrent)
CPT/HCPCS: 99283

== ENCOUNTER 2018-02-05 21:30 | Emergency (ER) | payer MEDICARE, MEDICAID ==
[~2018-02-05] VITALS: Ht 172.7 cm; Wt 70.0 kg
[2018-02-05 21:34] VITALS: BP 144/94
[2018-02-05] MEDS ORDERED: ACETAMINOPHEN 500 MG TABLET PO ONE (22:00)
[2018-02-05] MEDS ORDERED: IBUPROFEN 200 MG TABLET PO ONE (22:00)
[2018-02-05] MEDS ORDERED: LIDODERM 5% PATCH TD ONE (22:00)
[2018-02-05] MEDS ORDERED: IBUPROFEN 600 MG TABLET ONE (22:09)
[2018-02-05] MEDS ORDERED: ACETAMINOPHEN 500 MG TABLET ONE (22:09)
== END 2018-02-05 22:24 | disposition home or self-care (01) ==
LOC: ED 22:14
DX: S16.1XXA Strain of muscle, fascia and tendon at neck level, initial encounter (principal); X58.XXXA Exposure to other specified factors, initial encounter; Y93.01 Activity, walking, marching and hiking; Y92.89 Other specified places as the place of occurrence of the external cause; Y99.8 Other external cause status
CPT/HCPCS: 99284

== ENCOUNTER 2018-03-20 05:35 | Emergency (ER) | payer MEDICARE, MEDICAID ==
[~2018-03-20] VITALS: Ht 188 cm; Wt 58.0 kg
[2018-03-20] MEDS ORDERED: BACITRACIN ZINC OINT 500U/GM, 0.9 GM ONE (06:02)
[2018-03-20 06:07] VITALS: BP 133/97
== END 2018-03-20 06:11 | disposition home or self-care (01) ==
LOC: ED 05:50
DX: S90.821A Blister (nonthermal), right foot, initial encounter (principal); L03.113 Cellulitis of right upper limb; I10 Essential (primary) hypertension; F41.1 Generalized anxiety disorder; G89.29 Other chronic pain; X58.XXXA Exposure to other specified factors, initial encounter; Y93.89 Activity, other specified; Y92.009 Unspecified place in unspecified non-institutional (private) residence as the place of occurrence of the external cause; Y99.8 Other external cause status
CPT/HCPCS: 99283

== ENCOUNTER 2018-04-02 04:09 | Emergency (ER) | payer MEDICARE, MEDICAID ==
[~2018-04-02] VITALS: Ht 167.6 cm; Wt 61.9 kg
--- NOTE | 2018-04-02 04:19 | NUR ---
PT STATES THAT HE IS HAVING "SKULL PAIN", AND REPORTS FEELING UNWELL. PT STATES THAT HE HASN'T FELT WELL ALL WEEK. PT HAS HAD A PRODUCTIVE COUGH AND RUNNY NOSE. PT STATES MUCOUS IS GREEN/BELLO. per triage note
[2018-04-02 04:23] VITALS: BP 130/92
--- NOTE | 2018-04-02 06:05 | NUR ---
daylin melton given cxr result to pt for dc home pt gets angry and throw away the blanket. called security for escorting pt out unable to obtain dc instruction signature but pt walked out
== END 2018-04-02 06:21 | disposition home or self-care (01) ==
LOC: ED 05:00
DX: J00 Acute nasopharyngitis [common cold] (principal); F41.1 Generalized anxiety disorder; I10 Essential (primary) hypertension; G89.29 Other chronic pain
CPT/HCPCS: 71046; 99283

== ENCOUNTER 2018-04-23 11:02 | Emergency (ER) | payer MEDICARE, MEDICAID ==
[~2018-04-23] VITALS: Ht 172.7 cm; Wt 64.0 kg
[2018-04-23] MEDS ORDERED: DIPHENHYDRAMINE 50 MG/ML, 1ML IVPush ONE (11:30)
[2018-04-23] MEDS ORDERED: SODIUM CHLORIDE FLUSH 10ML SYR IVF ONE (11:30)
[2018-04-23] MEDS ORDERED: KETOROLAC 30 MG/1 ML IVPush ONE (11:30)
[2018-04-23] MEDS ORDERED: ACETAMINOPHEN 500 MG TABLET PO ONE (11:30)
[2018-04-23] MEDS ORDERED: METOCLOPRAMIDE 5 MG/ML, 2ML IVPush ONE (11:30)
[2018-04-23] MEDS ORDERED: DIPHENHYDRAMINE 50 MG/ML, 1ML ONE (11:43)
[2018-04-23] MEDS ORDERED: ACETAMINOPHEN 500 MG TABLET ONE (11:43)
[2018-04-23] MEDS ORDERED: METOCLOPRAMIDE 5 MG/ML, 2ML ONE (11:43)
[2018-04-23] MEDS ORDERED: KETOROLAC 30 MG/1 ML ONE (11:43)
[2018-04-23 11:52] LABS: RAPID INFLUENZA A POSITIVE (Negative); RAPID INFLUENZA B Negative (Negative)
[2018-04-23 11:56] LABS: BASOPHILS # (AUTO) 0.03 x10^3/uL (0-0.1); BASOPHILS % (AUTO) 0 % (0-1); EOSINOPHILS # (AUTO) 0.02 x10^3/uL (0-0.4); EOSINOPHILS % (AUTO) 0 % (1-7); LYMPHOCYTES # (AUTO) 1.23 x10^3/uL (1-3.4); LYMPHOCYTES % (AUTO) 13 % (22-44); MD NO; MEAN CORPUSCULAR HEMOGLOBIN 29.8 pg (27.5-34.5); MEAN CORPUSCULAR HGB CONC 33.6 g/dL (33.2-36.2); MEAN CORPUSCULAR VOLUME 88.7 fL (81-97); MEAN PLATELET VOLUME 7.7 fL (7.4-10.4); MONOCYTES # (AUTO) 1.14 x10^3/uL (0.2-0.8); MONOCYTES % (AUTO) 12 % (2-9); NEUTROPHILS # (AUTO) 7.14 x10^3/uL (1.8-6.8); NEUTROPHILS % (AUTO) 75 % (42-75); PLATELET COUNT 322 x10^3/uL (130-400); RED BLOOD COUNT 4.82 x10^6/uL (4.38-5.82); RED CELL DISTRIBUTION WIDTH 13.7 % (9.4-14.8)
[2018-04-23 12:07] LABS: ALBUMIN 3.7 g/dL (3.4-5.0); ANION GAP 6 mmol/L (5-15); CHLORIDE 102 mmol/L (98-107)
[2018-04-23 12:08] LABS: CREATININE 0.76 mg/dL (0.7-1.3)
--- NOTE | 2018-04-23 13:46 | NUR ---
PT UP FOR DISCHARGE
[2018-04-23 13:47] VITALS: BP 115/73
== END 2018-04-23 13:49 | disposition home or self-care (01) ==
LOC: ED 12:11
DX: J10.1 Influenza due to other identified influenza virus with other respiratory manifestations (principal); I10 Essential (primary) hypertension
CPT/HCPCS: 36415; 71045; 80048; 82040; 85025; 87400; 96374; 96375; 99284; J1200; J1885; J2765

== ENCOUNTER 2018-04-24 06:51 | Emergency (ER) | payer MEDICARE, MEDICAID ==
[~2018-04-24] VITALS: Ht 172.7 cm; Wt 64.0 kg
[2018-04-24] MEDS ORDERED: IBUPROFEN 800 MG TABLET ONE (07:22)
[2018-04-24] MEDS ORDERED: ONDANSETRON ODT 4 MG ONE (07:22)
[2018-04-24] MEDS ORDERED: ACETAMINOPHEN 500 MG TABLET ONE (07:23)
[2018-04-24] MEDS ORDERED: ACETAMINOPHEN 500 MG TABLET PO ONE (07:30)
[2018-04-24] MEDS ORDERED: IBUPROFEN 800 MG TABLET PO SCH (07:30)
[2018-04-24] MEDS ORDERED: ONDANSETRON ODT 8 MG PO ONE (07:30)
--- NOTE | 2018-04-24 07:31 | NUR ---
PT IN ROOM LIGHTS OFF. PT MEDICATED PER ORDER.
[2018-04-24 08:10] VITALS: BP 108/75
== END 2018-04-24 08:12 | disposition home or self-care (01) ==
LOC: ED 08:08
DX: J10.1 Influenza due to other identified influenza virus with other respiratory manifestations (principal); R50.81 Fever presenting with conditions classified elsewhere; I10 Essential (primary) hypertension; F41.1 Generalized anxiety disorder; G43.909 Migraine, unspecified, not intractable, without status migrainosus; Z87.01 Personal history of pneumonia (recurrent); Z72.9 Problem related to lifestyle, unspecified
CPT/HCPCS: 99284; Q0162

== ENCOUNTER 2018-04-29 12:58 | Emergency (ER) | payer MEDICARE, MEDICAID ==
[~2018-04-29] VITALS: Ht 172.7 cm; Wt 63.5 kg
[2018-04-29] MEDS ORDERED: ACETAMINOPHEN 500 MG TABLET PO ONE (13:30)
[2018-04-29] MEDS ORDERED: PROCHLORPERAZINE 5 MG/ML, 2ML IM ONE (13:30)
[2018-04-29] MEDS ORDERED: KETOROLAC 30 MG/1 ML IM ONE (13:30)
[2018-04-29] MEDS ORDERED: PROCHLORPERAZINE 5 MG/ML, 2ML ONE (13:43)
[2018-04-29] MEDS ORDERED: KETOROLAC 30 MG/1 ML ONE (13:43)
[2018-04-29] MEDS ORDERED: ACETAMINOPHEN 500 MG TABLET ONE (13:43)
--- NOTE | 2018-04-29 13:57 | NUR ---
PT. IS A & O X 4 WITH C/O OCHOA PAIN. PT. PUPILS ARE ANGEL. PT. REMAINS A & O X 4. PT. WAS MEDICATED FOR PAIN ORDERED. PT. HAS A BLANKET FOR WARMTH AND THE SIDERAILS ARE UP X 2. LUNGS ARE CTA. MM ARE PINK AND MOIST WITH PULSES +2 THROUGHOUT.
--- NOTE | 2018-04-29 14:25 | NUR ---
PT. WAS GIVEN DISCHARGE INSTRUCTIONS WITH UNDERSTANDING VERBALIZED ALONG WITH WILLINGNESS TO COMPLY. PT. WAS AMBULATORY TO THE DISCHARGE DESK.
[2018-04-29 14:26] VITALS: BP 114/68
== END 2018-04-29 14:28 | disposition home or self-care (01) ==
LOC: ED 13:58
DX: G44.219 Episodic tension-type headache, not intractable (principal); I10 Essential (primary) hypertension; F17.200 Nicotine dependence, unspecified, uncomplicated; Z72.9 Problem related to lifestyle, unspecified; Z87.01 Personal history of pneumonia (recurrent)
CPT/HCPCS: 96372; 99283; J0780; J1885